=== PATIENT | female | born 1950 | race Hispanic/Latino ===

== ENCOUNTER → 2017-10-16 | Day surgery (SDC) | payer MEDICARE, BC ==
[~2017-10-16] MED LIST: AZOR 5-20 MG T1 EACH PO; CELEBREX200 MG PO; EMBREL; FENTANYL CITRATE/PF 100MCG/2 ML INJ ONE; FOLGARD RX TAB1 EACH PO; METHOTREXATE PO; MIDAZOLAM HCL 2 MG/2 ML VIAL ONE; OR PHACO EYE KIT ONE; PANTOPRAZOLE SO40 MG PO; PREDNISONE5 MG PO; PREMARIN0.625 MG PO; PREOP PHACO EYE KIT ONE; ULTRAM 50MG50 MG PO
== END | disposition home or self-care (01) ==
LOC: OR 10:46
PROVIDERS: ATTEND Ophthalmology
DX: H25.12 Age-related nuclear cataract, left eye (principal); M06.9 Rheumatoid arthritis, unspecified; K21.9 Gastro-esophageal reflux disease without esophagitis; I10 Essential (primary) hypertension; G47.33 Obstructive sleep apnea (adult) (pediatric); Z01.810 Encounter for preprocedural cardiovascular examination
CPT/HCPCS: 66984; 93005; J2250; V2632

== ENCOUNTER → 2017-10-30 | Day surgery (SDC) | payer MEDICARE, BC | END | disposition home or self-care (01) | LOC: OR 10:25 | PROVIDERS: ATTEND Ophthalmology | DX: H25.11 Age-related nuclear cataract, right eye (principal); M06.9 Rheumatoid arthritis, unspecified; I10 Essential (primary) hypertension; K21.9 Gastro-esophageal reflux disease without esophagitis; G47.33 Obstructive sleep apnea (adult) (pediatric); K44.9 Diaphragmatic hernia without obstruction or gangrene; Z86.11 Personal history of tuberculosis | CPT/HCPCS: 66984; J2250 ==

== ENCOUNTER → 2018-10-08 | Day surgery (SDC) | payer MEDICARE, BC ==
[2018-10-03 10:47] LABS: BASOPHILS # (AUTO) 0.1 (0.0-0.1); BASOPHILS % 0.6 % (0.0-1.0); EOSINOPHILS # (AUTO) 0.4 (0.0-0.4); EOSINOPHILS % 3.9 % (0.0-6.0); HEMATOCRIT 41.3 % (34.2-44.1); HEMOGLOBIN 13.3 g/dL (12.0-16.0); LYMPHOCYTES # (AUTO) 3.9 (1.0-3.2); LYMPHOCYTES % 37.2 % (18.0-39.1); MEAN CORPUSCULAR HEMOGLOBIN 29.5 pg (28-32); MEAN CORPUSCULAR HGB CONC 32.2 g/dL (31-35); MEAN CORPUSCULAR VOLUME 91.6 fL (81-99); MONOCYTES # (AUTO) 1.4 (0.2-0.8); NEUTROPHILS # (AUTO) 4.7 (2.1-6.9); PLATELET COUNT 269 x10e3/uL (140-360); RED BLOOD COUNT 4.51 x10e6/uL (3.6-5.1); RED CELL DISTRIBUTION WIDTH 14.1 % (11.7-14.4)
[~2018-10-08] MED LIST changes: +DEXILANT60 MG PO; -EMBREL; +EMBREL PO; -FENTANYL CITRATE/PF 100MCG/2 ML INJ ONE; -OR PHACO EYE KIT ONE; -PREOP PHACO EYE KIT ONE; +PROPOFOL IV EMULSION 10 MG/ML 50 ML VIAL ONE
--- OUTSIDE RECORDS SUMMARY | 2018-10-08 05:16 | XMS REPORT | Continuity of Care Document ---
Author Author [facility] Address Unknown Phone Unavailable Problems Problem Status Onset Date Classification Date Reported Comments Source Lumbar facet joint pain Active Problem 12/20/2016 Clint Mathew Lumbar radiculopathy Active Problem 12/20/2016 Clint Mathew Degeneration of lumbar intervertebral disc Active Problem 12/20/2016 Clint Mathew Medications Medication Details Route Status Patient Instructions Ordering Provider Order Date Source PredniSONE as directed Orally Active 5 MG Orally Once a day Dave 11/29/2016 Clint Mathew Enbrel 1 ml Subcutaneous Active 50 MG/ML Subcutaneous once a week [facility] Clint Mathew TraMADol HCl ER 1 tablet Orally Active 200 MG Orally Once a day [facility] Clint Mathew Celebrex 1 capsule Orally Active 200 MG Orally Once a day [facility] Clint Mathew Premarin 1 tablet Orally Active 0.625 MG Orally Once a day [facility] Clint Mathew Folgard RX 1 tablet Orally Active 2.2-25-1 MG Orally Once a day [facility] Clint Mathew Protonix 1 tablet Orally Active 40 MG Orally Once a day [facility] Clint Mathew Thien 1 tablet Orally Active 5-20 MG Orally Once a day [facility] Clint Mathew Methotrexate as directed Orally Active 2.5mg Orally Once a week [facility] Clint Mathew Allergies, Adverse Reactions, Alerts Substance Category Reaction Severity Reaction type Status Date Reported Comments Source sulfa Adverse Reaction Info Not Available Adverse Reaction Active 11/29/2016 Clint Mathew Zoloft Adverse Reaction hives Adverse Reaction Active 11/29/2016 Clint Mathew Zinc Adverse Reaction Info Not Available Adverse Reaction Active 11/29/2016 Clint Mathew Vicodin Adverse Reaction rash Adverse Reaction Active 11/29/2016 Clint Mathew Plaquenil Adverse Reaction Info Not Available Adverse Reaction Active 11/29/2016 Clint Mathew Immunizations Immunization Date Given Site Status Last Updated Comments Source Results Order Name Results Value Reference Range Date Interpretation Comments Source Vital Signs Vital Sign Value Date Comments Source Weight 192.9 11/29/2016 Clint Mathew Height 63.5 11/29/2016 Clint Mathew Temperature Oral (F) 97.4 F 11/29/2016 Clint Mathew Heart Rate 80 11/29/2016 Clintpete Mathew Diastolic (mm Hg) 60 11/29/2016 Clintpete Mathew Systolic (mm Hg) 100 11/29/2016 Clintpete Mathew Encounters Location Location Details Encounter Type Encounter Number Reason For Visit Attending Provider ADM Date DC Date Status Source Procedures Procedure Code Date Perfomer Comments Source
[2018-10-08 08:05] VITALS: BP 107/81
== END | disposition home or self-care (01) ==
LOC: OR 05:00
PROVIDERS: ATTEND Internal Medicine Gastroenterology
DX: K29.50 Unspecified chronic gastritis without bleeding (principal); K21.0 Gastro-esophageal reflux disease with esophagitis; F45.8 Other somatoform disorders; K44.9 Diaphragmatic hernia without obstruction or gangrene; K90.49 Malabsorption due to intolerance, not elsewhere classified; R63.4 Abnormal weight loss; G47.33 Obstructive sleep apnea (adult) (pediatric); I10 Essential (primary) hypertension; R07.9 Chest pain, unspecified; M06.9 Rheumatoid arthritis, unspecified; Z88.2 Allergy status to sulfonamides; Z88.8 Allergy status to other drugs, medicaments and biological substances; Z91.048 Other nonmedicinal substance allergy status; Z01.810 Encounter for preprocedural cardiovascular examination; Z01.812 Encounter for preprocedural laboratory examination; Z68.34 Body mass index [BMI] 34.0-34.9, adult; Z86.11 Personal history of tuberculosis
CPT/HCPCS: 36415; 43239; 85025; 88305; 88312; 93005; J2250; J2704

== ENCOUNTER 2019-02-15 19:57 | Emergency (ER) | payer MEDICARE, BC ==
[~2019-02-15] VITALS: Ht 162.6 cm; Wt 91.6 kg
[~2019-02-15 19:57] MED LIST changes: -MIDAZOLAM HCL 2 MG/2 ML VIAL ONE; -PROPOFOL IV EMULSION 10 MG/ML 50 ML VIAL ONE
[2019-02-15] MEDS ORDERED: TETRACAINE HCL 0.5% OPTH SOLN 4 ML BTL OP ONE (20:15)
[2019-02-15] MEDS ORDERED: FLUORESCEIN SOD(OPTH) 1 MG STRP OP ONE (20:15)
== END 2019-02-15 20:40 | disposition home or self-care (01) ==
LOC: ER 19:57
DX: H11.31 Conjunctival hemorrhage, right eye (principal); I10 Essential (primary) hypertension; K21.9 Gastro-esophageal reflux disease without esophagitis; M06.9 Rheumatoid arthritis, unspecified; M54.9 Dorsalgia, unspecified; G89.29 Other chronic pain
CPT/HCPCS: 99283

== ENCOUNTER → 2020-02-24 | Day surgery (SDC) | payer MEDICARE, BC, OTHER ==
[2020-02-20 10:53] LABS: BASOPHILS # (AUTO) 0.1 (0.0-0.1); BASOPHILS % 0.8 % (0.0-1.0); EOSINOPHILS # (AUTO) 0.2 (0.0-0.4); HEMATOCRIT 44.2 % (34.2-44.1); HEMOGLOBIN 13.7 g/dL (12.0-16.0); LYMPHOCYTES # (AUTO) 1.9 (1.0-3.2); LYMPHOCYTES % 28.6 % (18.0-39.1); MEAN CORPUSCULAR HEMOGLOBIN 27.1 pg (28-32); MEAN CORPUSCULAR VOLUME 87.4 fL (81-99); MONOCYTES # (AUTO) 0.8 (0.2-0.8); MONOCYTES % 12.6 % (4.4-11.3); NEUTROPHILS # (AUTO) 3.5 (2.1-6.9); NEUTROPHILS % 53.8 % (38.7-80.0); PLATELET COUNT 216 x10e3/uL (140-360); RED BLOOD COUNT 5.06 x10e6/uL (3.6-5.1); RED CELL DISTRIBUTION WIDTH 13.8 % (11.7-14.4)
[~2020-02-24] MED LIST changes: +ACYCLOVIR800 MG PO; +ARIMIDEX1 MG PO; +DICLOFENAC SOD100 G1 TOP; +FENTANYL CITRATE/PF 100MCG/2 ML INJ ONE; +LEFLUNOMIDE20 MG PO; +LISINOPRIL5 MG PO; +MIDAZOLAM HCL 2 MG/2 ML VIAL ONE; +MYRBETRIQ25 MG PO; +PROPOFOL IV EMULSION 10 MG/ML 20 ML VIAL ONE; +VITAMIN D3125 MCG PO; +[UNRECOGNIZED DRUG - OTHER] PO
[2020-02-24 10:40] VITALS: BP 115/55
== END | disposition home or self-care (01) ==
LOC: OR 06:27
PROVIDERS: ATTEND Internal Medicine Gastroenterology
DX: D12.2 Benign neoplasm of ascending colon (principal); D12.3 Benign neoplasm of transverse colon; K64.8 Other hemorrhoids; K29.70 Gastritis, unspecified, without bleeding; K44.9 Diaphragmatic hernia without obstruction or gangrene; K21.0 Gastro-esophageal reflux disease with esophagitis; K59.09 Other constipation; M06.9 Rheumatoid arthritis, unspecified; I10 Essential (primary) hypertension; Z85.3 Personal history of malignant neoplasm of breast; Z80.0 Family history of malignant neoplasm of digestive organs; Z01.810 Encounter for preprocedural cardiovascular examination; Z01.812 Encounter for preprocedural laboratory examination; Z11.59 Encounter for screening for other viral diseases; G47.33 Obstructive sleep apnea (adult) (pediatric)
CPT/HCPCS: 36415; 43239; 45384; 85025; 87635; 88305; 88312; 93005; J2250; J2704; J3010